=== PATIENT | female | born 1980 | race Two or more races ===

== ENCOUNTER 2022-06-09 11:52 | Emergency (ER) | payer OTHER ==
[~2022-06-09] VITALS: Ht 154.9 cm; Wt 52.2 kg
[2022-06-09] MEDS ORDERED: ONDANSETRON 4 MG/2 ML VIAL ONE (12:12)
[2022-06-09] MEDS ORDERED: ONDANSETRON 4 MG/2 ML VIAL IV ONE (12:15)
[2022-06-09] MEDS ORDERED: KETOROLAC TROMETHAMINE 15 MG INJ IVP ONE (12:15)
[2022-06-09 12:17] LABS: *URINE HCG, QUAL NEGATIVE (NEGATIVE)
[2022-06-09 12:18] LABS: *BILIRUBIN,URIN NEGATIVE (NEGATIVE); *BLOOD, URINE NEGATIVE (NEGATIVE); *CLARITY,URINE CLEAR (CLEAR); *COLOR,URINE YELLOW (YELLOW); *KETONES,URINE TRACE (NEGATIVE); *UROBILINOGEN,URINE 0.2 E.U./dl (NORMAL); LEUKOCYTE ESTERASE ,URINE NEGATIVE (NEGATIVE); NITRITE, URINE NEGATIVE (NEGATIVE); PH,URINE 7.5 (5.0-8.0); UGLUCOSE NEGATIVE (NEGATIVE)
[2022-06-09] MEDS ORDERED: KETOROLAC TROMETHAMINE 15 MG INJ ONE (12:19)
[2022-06-09 12:23] LABS: HEMATOCRIT 37.3 % (31.2-41.9); MEAN CORPUSCULAR HEMOGLOBIN 30.2 uug (24.7-32.8); MEAN CORPUSCULAR VOLUME 91.4 fL (75.5-95.3); PLATELET COUNT (AUTO) 221 K/uL (179-408)
[2022-06-09 12:38] LABS: BILIRUBIN,DIRECT 0.2 mg/dL (0.0-0.2); BILIRUBIN,TOTAL 0.6 mg/dL (0.2-1.0); CREATININE 0.7 mg/dL (0.6-1.3); POTASSIUM 3.3 mmol/L (3.5-5.1); TOTAL PROTEIN, SERUM 7.3 g/dL (6.4-8.2)
--- NOTE | 2022-06-09 12:40 | NUR ---
Pt states pain and nausea is completely gone.
[2022-06-09] MEDS ORDERED: IOHEXOL 300MG/ML 100 ML INFUS..BTL ONE (12:47)
[2022-06-09] MEDS ORDERED: IV NORMAL SALINE 250 ML IV ONE (12:47)
[2022-06-09] MEDS ORDERED: SWABABLE VALVE TRANSFER SET EA MC ONE (12:47)
--- NOTE | 2022-06-09 12:47 | NUR ---
Pt signed consent for IV contrasted Ct scan, placed in the chart.
--- NOTE | 2022-06-09 13:20 | NUR ---
Pt back from Ct scan, resting in bed. family at the bedside.
[2022-06-09 13:34] LABS: BACTERIA,URINE NONE SEEN /HPF (NONE SEEN); RBC,URINE NONE SEEN /HPF (0-3); SQUAMOUS EPITHELIAL CELL,UR FEW /HPF (NONE SEEN); WBC,URINE 0-3 /HPF (0-3)
--- NOTE | 2022-06-09 13:51 | NUR ---
IV removed. Catheter intact and site benign. Pressure and 4x4 gauze applied to site. No bleeding noted.
[2022-06-09 13:52] VITALS: BP 105/57
--- NOTE | 2022-06-09 13:53 | NUR ---
Patient discharged to home in stable condition. Written and verbal after care instructions given. Patient verbalizes understanding of instructions. Stressed follow up or return to ER for worsening s/s.
== END 2022-06-09 13:53 | disposition home or self-care (01) ==
LOC: ER 11:52
DX: N94.89 Other specified conditions associated with female genital organs and menstrual cycle (principal); E87.6 Hypokalemia
CPT/HCPCS: 99285; 74177; 96374; 96375; 80076; 80048; 81001; 84703; 83690; 85025; 36415; 87040; J1885; J2405; Q9967; J7040; A4663